=== PATIENT | female | born 1950 | race Hispanic/Latino ===

== ENCOUNTER → 2024-08-26 | Outpatient (CLI) | payer OTHER ==
--- NOTE | 2024-08-26 13:20 | HMCIMG ---
DEXA BONE DENSITY SURVEY HISTORY: Osteoporosis COMPARISON: None FINDINGS: Bone densitometry study was performed. Bone mineral density of the lumbar spine is 0.881 gram per centimeter square which corresponds to a T score of -1.5 and a Z score of 0.7. Bone mineral density of the left hip is 0.861 grams per centimeter square which corresponds to a T score of -0.8 and a Z score of 0.9. IMPRESSION: 1. Normal bone mineral density of the left hip and osteopenia of the lumbar spine.
== END | disposition home or self-care (01) ==
LOC: RAH 09:58
PROVIDERS: ATTEND Internal Medicine
DX: M81.0 Age-related osteoporosis without current pathological fracture (principal); M85.89 Other specified disorders of bone density and structure, multiple sites
CPT/HCPCS: 77080